=== PATIENT | female | born 1980 | race African-American/Black ===

== ENCOUNTER 2016-11-24 00:14 | Emergency (ER) | payer OTHER, BC ==
[2016-11-24 00:30] VITALS: BP 129/57; PULSE 59; TEMP 97; BMI 29.5
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
[2016-11-24] MEDS ORDERED: IBUPROFEN 600 MG TABLET (FP) PO ONE ×2 (01:15→01:32)
== END 2016-11-24 03:36 | disposition home or self-care (01) ==
LOC: JER 00:14
DX: M54.5 Low back pain (principal); M54.2 Cervicalgia; V43.52XA Car driver injured in collision with other type car in traffic accident, initial encounter; Y92.414 Local residential or business street as the place of occurrence of the external cause; Y93.89 Activity, other specified
CPT/HCPCS: 72100-TC; 73030-TC-RT; 84703; 99281-25

== ENCOUNTER 2022-04-13 20:44 | Emergency (ER) | payer BC, OTHER ==
[2022-04-13 21:05] VITALS: RESP 17; TEMP 98; BMI 31.7
[2022-04-13] MEDS ORDERED: SODIUM CHLORIDE 1,000 ML IV STA ×2 (21:46→23:15)
[2022-04-13 22:24] LABS: HEMATOCRIT 34.3 % (32.4-45.2); HEMOGLOBIN 11.7 G/dL (10.7-15.3); MCH 31.6 pg (25.7-33.7); MEAN PLT VOLUME 8.9 fl (7.5-11.1); PLATELET COUNT 206.6 10^3/uL (134-434); RBC 3.69 10^6/uL (3.60-5.2); RDW 13.9 % (11.6-15.6); WHITE BLOOD COUNT 7.6 10^3/uL (4.0-10.8)
[2022-04-13 22:40] LABS: PLATELET ESTIMATE ADEQUATE
[2022-04-13 22:41] LABS: ALBUMIN 3.8 g/dl (3.4-5.0); BILIRUBIN,TOTAL 1.1 mg/dl (0.2-1); CALCIUM 9.1 mg/dl (8.5-10); CREATININE 0.8 mg/dl (0.55-1.3); TOT PROT 7.4 g/dl (6.4-8.2)
== END 2022-04-14 00:59 | disposition home or self-care (01) ==
LOC: FER 20:44
PROC: 3E0337Z Introduction of Electrolytic and Water Balance Substance into Peripheral Vein, Percutaneous Approach (ICD-10-PCS; principal; 2022-04-13)
PROC: 3E0337Z Introduction of Electrolytic and Water Balance Substance into Peripheral Vein, Percutaneous Approach (ICD-10-PCS; 2022-04-13)
DX: E86.0 Dehydration (principal); R53.81 Other malaise
CPT/HCPCS: 36415; 80053; 85027; 99284-25

== ENCOUNTER 2022-06-19 22:27 | Emergency (ER) | payer BC ==
[2022-06-19 22:33] VITALS: RESP 18; BMI 31.8
[2022-06-19 22:40] VITALS: BP 121/89; PULSE 63; TEMP 99.2
== END 2022-06-19 23:53 | disposition home or self-care (01) ==
LOC: FER 22:27
DX: R20.2 Paresthesia of skin (principal); R07.89 Other chest pain
CPT/HCPCS: 36415; 82550; 84484; 93005; 93010; 99283-25